=== PATIENT | male | born 1970 | race Caucasian/White ===

== ENCOUNTER 2016-11-13 15:27 | Inpatient (IN) | payer MEDICARE ==
[~2016-11-13] VITALS: Ht 182.9 cm; Wt 64.1 kg
[2016-11-13 15:28] VITALS: BP 134/80; PULSE 108; RESP 20; TEMP 98.9; O2SAT 96
[2016-11-13 16:05] VITALS: BP 132/87; PULSE 100; RESP 18; TEMP 99.3; O2SAT 95
[2016-11-13] MEDS ORDERED: BUPR150CR PO (16:31)
[2016-11-13] MEDS ORDERED: TRIL300T PO (16:31)
[2016-11-13] MEDS ORDERED: CELE20TA PO (16:31)
[2016-11-13] MEDS ORDERED: VENTAER INH (16:49)
--- NOTE | 2016-11-13 17:29 | PD ---
HPI Chief Complaint: Suicide Ideation/Attempt Time Seen by Provider: 16:55 Travel History International Travel<30 days: No Contact w/Intl Traveler<30days: No Traveled to known affect area: No History of Present Illness HPI Patient comes in for evaluation of suicidal ideations. Patient states these began yesterday. Patient states he is tired but suicide in the past partially 2 years ago by slicing open his forearm. Patient states his plan this time was possibly run in front of a garbage truck. Patient denies any medical concerns at this time. Denies any chest pain, shortness of breath, fevers, nausea, vomiting, or abdominal pain. Patient reports a history of bipolar and arthritis. PFSH Past Medical History Medical History: Denies Significant Hx Asthma: No Diabetes: No Patient Takes Glucophage: No Diminished Hearing: No Tetanus Vaccination: < 5 Years Past Surgical History Surgical History: No Previous Surgery Social History Alcohol Use: Yes (12 ppd) Tobacco Use: Yes (1-06/28 ppd) Substance Use: No (denied) Allergies-Medications (Allergen,Severity, Reaction): Coded Allergies: Librium (Verified Allergy, Unknown, 11/13/16) Reported Meds & Prescriptions Reported Meds & Active Scripts Active Reported Ventolin Hfa 18 GM Inh (Albuterol Sulfate) 90 Mcg/Act Aer 1 Puff INH Q4H PRN Wellbutrin SR 12 HR (Bupropion HCl) 150 Mg Tab 150 Mg PO Q12HR Trileptal (Oxcarbazepine) 300 Mg Tab 450 Mg PO BID Celexa (Citalopram Hydrobromide) 20 Mg Tab 20 Mg PO DAILY Review of Systems Except as stated in HPI: all other systems reviewed are Neg Physical Exam Narrative GENERAL: Well-developed, well nourished, in no acute distress, and non-ill appearing. SKIN: Focused skin assessment warm and dry. HEAD: Atraumatic. Normocephalic. EYES: Pupils equal and round. EOMI. No scleral icterus. No injection or drainage. ENT: No nasal bleeding or discharge. Mucous membranes pink and moist. NECK: Trachea midline. Supple. No nuclear rigidity. CARDIOVASCULAR: Regular rate and rhythm. No murmur appreciated. RESPIRATORY: No accessory muscle use. No respiratory distress. Clear to auscultation. Breath sounds equal bilaterally. MUSCULOSKELETAL: No obvious deformities. No clubbing. No cyanosis. No edema. Full range of motion. NEUROLOGICAL: Awake and alert. No obvious cranial nerve deficits. Motor grossly within normal limits. Normal speech. PSYCHIATRIC: Appropriate mood and affect; insight and judgment normal. Data Data Last Documented VS Vital Signs Date Time Temp Pulse Resp B/P Pulse Ox O2 Delivery O2 Flow Rate FiO2 11/13/16 17:53 86 18 126/69 Room Air 11/13/16 16:05 99.3 95 Orders Psych Screen (11/13/16 16:10) Diet Regular Basic (11/13/16 Dinner) Complete Blood Count With Diff (11/13/16 16:52) Comprehensive Metabolic Panel (11/13/16 16:52) Drug Screen, Random Urine (11/13/16 16:52) Alcohol (Ethanol) (11/13/16 16:52) Salicylates (Aspirin) (11/13/16 16:52) Tylenol (Acetaminophen) (11/13/16 16:52) Labs Laboratory Tests Test 11/13/16 11/13/16 16:59 17:15 Urine Opiates Screen NEG Urine Barbiturates Screen NEG Urine Amphetamines Screen NEG Urine Benzodiazepines Screen NEG Urine Cocaine Screen POS Urine Cannabinoids Screen NEG White Blood Count 4.0 TH/MM3 Red Blood Count 4.63 MIL/MM3 Hemoglobin 14.5 GM/DL Hematocrit 43.3 % Mean Corpuscular Volume 93.6 FL Mean Corpuscular Hemoglobin 31.2 PG Mean Corpuscular Hemoglobin 33.3 % Concent Red Cell Distribution Width 14.0 % Platelet Count 195 TH/MM3 Mean Platelet Volume 7.3 FL Neutrophils (%) (Auto) 42.9 % Lymphocytes (%) (Auto) 41.3 % Monocytes (%) (Auto) 12.9 % Eosinophils (%) (Auto) 2.4 % Basophils (%) (Auto) 0.5 % Neutrophils # (Auto) 1.7 TH/MM3 Lymphocytes # (Auto) 1.7 TH/MM3 Monocytes # (Auto) 0.5 TH/MM3 Eosinophils # (Auto) 0.1 TH/MM3 Basophils # (Auto) 0.0 TH/MM3 CBC Comment DIFF FINAL Differential Comment Sodium Level 140 MEQ/L Potassium Level 4.0 MEQ/L Chloride Level 99 MEQ/L Carbon Dioxide Level 30.1 MEQ/L Anion Gap 11 MEQ/L Blood Urea Nitrogen 13 MG/DL Creatinine 0.85 MG/DL Estimat Glomerular Filtration 97 ML/MIN Rate Random Glucose 97 MG/DL Calcium Level 8.4 MG/DL Total Bilirubin 0.2 MG/DL Aspartate Amino Transf 165 U/L (AST/SGOT) Alanine Aminotransferase 187 U/L (ALT/SGPT) Alkaline Phosphatase 79 U/L Total Protein 6.5 GM/DL Albumin 3.8 GM/DL Salicylates Level 5.7 MG/DL Acetaminophen Level LESS THAN 2.0 MCG/ML Ethyl Alcohol Level 264 MG/DL MDM Medical Decision Making Medical Screen Exam Complete: Yes Emergency Medical Condition: Yes Differential Diagnosis Homicidal, suicidal, alcohol intoxication, bipolar, substance abuse disorder, other Narrative Course Patient was seen and examined. Labs were obtained and reviewed. Patient was placed under [facility] act by Dr. Burgos. Patient medically cleared for further treatment and evaluation by psych. Final disposition per psych. Diagnosis Primary Impression: Suicidal ideation Additional Impression: Alcohol intoxication Qualified Code: F10.920 - Alcohol intoxication, uncomplicated Condition: Stable Derrick Guadalupe November 13, 2016 17:29
[2016-11-13 17:38] LABS: AUTOMATED NEUTROPHIL # 1.7 TH/MM3 (1.8-7.7); BASOPHIL % 0.5 % (0.0-2.0); EOSINOPHIL # 0.1 TH/MM3 (0-0.4); EOSINOPHIL % 2.4 % (0.0-4.0); HEMATOCRIT 43.3 % (39.0-51.0); HEMO FLAGS DIFF FINAL; LYMPH % 41.3 % (9.0-44.0); LYMPHOCYTE # 1.7 TH/MM3 (1.0-4.8); MEAN CELL VOLUME 93.6 FL (80.0-100.0); MEAN CORPUSCULAR HEMOGLOBIN 31.2 PG (27.0-34.0); MEAN CORPUSCULAR HGB CONC 33.3 % (32.0-36.0); MONO % 12.9 % (0.0-8.0); NEUT % 42.9 % (16.0-70.0); PLATELET COUNT 195 TH/MM3 (150-450); RED BLOOD COUNT 4.63 MIL/MM3 (4.50-5.90)
[2016-11-13 17:52] LABS: AMPHETAMINE, URINE NEG (NEG); BARBITURATES, URINE NEG (NEG); COCAINE, URINE POS (NEG)
[2016-11-13 17:53] VITALS: BP 126/69; PULSE 86; RESP 18
[2016-11-13 18:00] LABS: ACETAMINOPHEN LESS THAN 2.0 MCG/ML (10.0-30.0); ALKALINE PHOSPHATASE 79 U/L (45-117); TOTAL BILIRUBIN ADULT 0.2 MG/DL (0.2-1.0)
[2016-11-13 18:18] LABS: ALT (GPT) 187 U/L (12-78); ANION GAP 11 MEQ/L (5-15); AST (GOT) 165 U/L (15-37); BICARBONATE 30.1 MEQ/L (21.0-32.0); BLOOD UREA NITROGEN 13 MG/DL (7-18); CHLORIDE 99 MEQ/L (98-107); GLOMERULAR FILTRATION RATE 97 ML/MIN (>89); SODIUM (NA) 140 MEQ/L (136-145)
[2016-11-13 22:11] VITALS: BP 127/79; PULSE 86; RESP 18; O2SAT 97
[2016-11-14 02:31] VITALS: BP 136/82; PULSE 84; RESP 18
[2016-11-14] MEDS ORDERED: DIAZEPAM 10 MG TAB PO ONE ×2 (03:00→09:00)
[2016-11-14 06:05] VITALS: BP 112/72; PULSE 63; RESP 18; O2SAT 97
[2016-11-14 08:30] VITALS: BP 137/73; PULSE 116; RESP 18; TEMP 99.6; O2SAT 97
[2016-11-14 10:00] VITALS: BP 114/72; PULSE 77; RESP 18; TEMP 99.8; O2SAT 95
[2016-11-14 14:10] VITALS: BP 133/78; PULSE 77; RESP 18; TEMP 99.6; O2SAT 95
[2016-11-14] MEDS ORDERED: ALUMINUM/MAGNESIUM/SIMETH 30 ML CUP PO PRN (16:30)
[2016-11-14] MEDS ORDERED: MAGNESIUM HYDROXIDE SUSP 30 ML CUP PO PRN (16:30)
[2016-11-14] MEDS ORDERED: LORazepam 0.5 MG TAB PO PRN (16:30)
[2016-11-14] MEDS ORDERED: LORazepam 2 MG/ML VIAL IM PRN ×2 (16:30)
[2016-11-14] MEDS ORDERED: LORazepam 1 MG TAB PO PRN (16:30)
[2016-11-14] MEDS ORDERED: LORazepam 2 MG/ML VIAL IV PUSH PRN ×4 (16:45)
[2016-11-14] MEDS ORDERED: FLUMAZENIL 0.5 MG/5 ML VIAL IV PUSH PRN (16:45)
[2016-11-14] MEDS ORDERED: HALOPERIDOL LACTATE 5 MG/ML AMP IM PRN (16:45)
[2016-11-14 17:29] VITALS: BP 107/81; PULSE 98; RESP 18; TEMP 98.6; O2SAT 98
[2016-11-14] MEDS: LORazepam 1 MG TAB PO PRN (20:42)
[2016-11-14] MEDS: REMOVE OLD NICODERM (NICOTINE) PATCH T-DERMAL SCH (20:58)
[2016-11-15 06:11] VITALS: BP 123/74; PULSE 80; RESP 18; TEMP 98.1; O2SAT 95
[2016-11-15] MEDS: LORazepam 2 MG TAB PO PRN ×2 (09:17→17:42)
[2016-11-15] MEDS: ACETAMINOPHEN 325 MG TAB PO PRN ×2 (09:18→14:24)
[2016-11-15] MEDS: NICOTINE 21 MG/24 HR PATCH T-DERMAL SCH (09:19)
[2016-11-15] MEDS: LORazepam 1 MG TAB PO PRN (12:53)
--- NOTE | 2016-11-15 18:02 | HHI.HP ---
Provisional Diagnosis Admission Date November 14, 2016 at 16:20 Chauncey I. 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 Express and informed consent means consent voluntarily given in writing, by a competent person, after sufficient explanation and disclosure of the subject matter involved to enable the person to make a knowing and willful decision without any element of force, fraud, deceit, duress, or other form of constraint or coercion. This person is 18 years of age or older, is not now known to be incompetent to consent to treatment with a guardian advocate, and does not have a health care surrogate or proxy currently making medical treatment decisions. I have found this person to be one of the following: [xx] Competent to provide express and informed consent, as defined above, for voluntary admission to this facility and is competent to provide express and informed consent for treatment. He/she has the consistent capacity to make well reasoned, willful, and knowing decisions concerning his or her medical or mental health treatment. The person fully and consistently understands the purpose of the admission for examination/placement and is fully capable of personally exercising all rights assured [place] Incompetent to provide express and informed consent to voluntary admission, and this is incompetent to provide express and informed consent to treatment. The person must be transferred to involuntary status and a petition for a guardian advocate filed with the Circuit Court. [] Refusing to provide express and informed consent to voluntary admission but is competent to provide express and informed consent for treatment. The person must be discharged or transferred to involuntary status. Form shall be completed within 24 hours of a person's arrival at the receiving facility and filed in the clinical record of each person: 1. Admitted on a voluntary basis 2. Permitted to provide express and informed consent to his/her own treatment 3. Allowed to transfer from involuntary to voluntary status 4. Prior to permitting a person to consent to his or her own treatment after having been previously found incompetent to consent to treatment. History of Present Illness Capacity: Has Capacity HPI Patient is a 46-year-old white male [place]. Acknowledge alcoholic drinks daily drinks in the morning drinks by himself acknowledges multiple detoxes in the past and other legal issues related to alcohol including some incarcerations. He minimizes his cocaine use. He also states a history mental health issues reels of various psychiatric medications has taken the past but has not taken them now because of funding issues. He states has been off his medication his Concerta increased suicidal thoughts. With vague plans on uncertain type. He is vague about past psychiatric hospitalizations out of state. Is also somewhat reluctant to talk about other past legal history. He denies any significant physical or sexual abuse in the past. In any event at the present time patient has been placed on the ciwa protocol due to his alcohol level and history. I do question the motivation for statements about suicidality. We did discuss possibility of finding placement for him at a situation such as [facility] his attitude change into one of denial of and need for that and irritability appearing suggested that. He stated that appear okay if he lived in a tent in the [facility]. This leads me to believe that may be some of the motivations for his suicidal statements and mental health history. For now though will continue with ciwa will refrain from any other psychotropics at this time no other benzodiazepines or opiates Review of Systems Constitutional: DENIES: Diaphoretic episodes, Fatigue, Fever, Weight gain, Weight loss, Chills, Dizziness, Change in appetite, Night Sweats Endocrine: DENIES: Heat/cold intolerance, Polydipsia, Polyuria, Polyphagia Eyes: DENIES: Blurred vision, Diplopia, Eye inflammation, Eye pain, Vision loss , Photosensitivity, Double Vision Ears, nose, mouth, throat: DENIES: Tinnitus, Hearing loss, Vertigo, Nasal discharge, Oral lesions, Throat pain, Hoarseness, Ear Pain, Running Nose, Epistaxis, Sinus Pain, Toothache, Odynophagia Respiratory: DENIES: Apneas, Cough, Snoring, Wheezing, Hemoptysis, Sputum production, Shortness of breath Cardiovascular: DENIES: Chest pain, Palpitations, Syncope, Dyspnea on Exertion , PND, Lower Extremity Edema, Orthopnea, Claudication Gastrointestinal: DENIES: Abdominal pain, Black stools, Bloody stools, Constipation, Diarrhea, Nausea, Vomiting, Difficulty Swallowing, Anorexia Genitourinary: DENIES: Sexual dysfunction, Urinary frequency, Urinary incontinence, Urgency, Hematuria, Dysuria, Nocturia, Penile Discharge, Testicular Pain, Testicular Swelling Musculoskeletal: DENIES: Joint pain, Muscle aches, Stiffness, Joint Swelling, Back pain, Neck pain Integumentary: DENIES: Abnormal pigmentation, Nail changes, Pruritus, Rash Hematologic/lymphatic: DENIES: Bruising, Lymphadenopathy Immunologic/allergic: DENIES: Eczema, Urticaria Neurologic: DENIES: Abnormal gait, Headache, Localized weakness, Paresthesias, Seizures, Speech Problems, Tremor, Poor Balance Psychiatric: COMPLAINS OF: Depression (claiming depression), Suicidal Ideation (claiming suicidality) Past Psych History Psychological trauma history Patient vague and noncommittal Violence risk - others (6 mos) Denies Violence risk - self (6 mos) States suicidal ideation Substance Abuse History Drugs/Alcohol past 12 months Active alcoholic cocaine Past Family Social History Coded Allergies: Librium (Verified Allergy, Unknown, 11/13/16) Past Medical History Nonspecific Reported Medications Albuterol 18 GM Inh (Ventolin Hfa 18 GM Inh)90 Mcg/Act Aer1 Puff INH Q4H PRN ( SHORTNESS OF BREATH) #1 INHALER Ref 0 11/13/16 Bupropion HCl ER 12 HR (Wellbutrin SR 12 HR)150 Mg [id number] Mg PO Q12HR Ref 0 11/13/16 Oxcarbazepine (Trileptal)300 Mg [id number] Mg PO BID #60 TAB Ref 0 11/13/16 Citalopram (Celexa)20 Mg Tab20 Mg PO DAILY #30 TAB Ref 0 11/13/16 Current Medications Medications (Trade) Dose Ordered Sig/Nuria Route Start Time Stop Time Status Last Admin (Ativan) 1 mg Q6H PRN PO 11/14/16 16:30 (Ativan Inj) 1 mg Q6H PRN IM 11/14/16 16:30 (Tylenol) 650 mg Q4H PRN PO 11/14/16 16:30 11/15/16 14:24 (Milk Of Magnesia Liq) 30 ml DAILY PRN PO 11/14/16 16:30 (Mag-Al Plus Susp Liq) 30 ml Q6H PRN PO 11/14/16 16:30 11/15/16 12:54 (Habitrol 21 Mg Patch.24 Hr) 1 patch DAILY T-DERMAL 11/14/16 16:30 Miscellaneous Information 1 HS T-DERMAL 11/14/16 21:00 (Romazicon Inj) 0.2 mg Q1M PRN IV PUSH 11/14/16 16:45 (Ativan) 1 mg Q4H PRN PO 11/14/16 16:45 11/15/16 12:53 (Ativan Inj) 1 mg Q4H PRN IV PUSH 11/14/16 16:45 (Ativan) 2 mg Q2H PRN PO 11/14/16 16:45 11/15/16 17:42 (Ativan Inj) 2 mg Q2H PRN IV PUSH 11/14/16 16:45 (Ativan Inj) 2 mg Q1H PRN IV PUSH 11/14/16 16:45 (Ativan Inj) 2 mg Q15M PRN IV PUSH 11/14/16 16:45 (Haldol Inj) 2 mg Q15M PRN IM 11/14/16 16:45 Family History Patient vague about any past mental health issues and family Social History Patient homeless Patient's Strengths (min. 2) Patient verbal labile axis health care Physical Exam Patient seen screened cleared in ED. At this time patient no acute distress no respiratory distress. Neck is supple pulse is regular confirm. Abdomen soft patient was all 4 extremities without difficulty Vital Signs Vital Signs Date Time Temp Pulse Resp B/P Pulse Ox O2 Delivery O2 Flow Rate FiO2 11/15/16 06:11 98.1 80 18 123/74 95 11/14/16 14:10 Room Air Mental Status Examination Alert oriented thin slender white male fairly long hair but [place]. Having is somewhat guarded intimidating entitled attitude Appearance Somewhat disheveled Speech: Unremarkable Orientation: x3 Memory: Unremarkable Thought Process: Logical Thought Content: Unremarkable Language Fair Fund of Knowledge Fair Hallucination Type: None (denies) Attention and Concentration: Other (there) Suicidal Ideation: Yes (patient making suicidal ideation) Previous Suicide Attempts: No Homicidal Ideation: No Previous Homicide Attempts: No Insight: Poor Judgment: Poor Affect: Other (good range and intensity) Mood: Euthymic (to mildly dysphoric and entitled) Motor Activity: Normal gait Assessment & Plan Problem List: (1) Adjustment disorder with mixed disturbance of emotions and conduct ICD Code: F43.25 (2) Alcohol intoxication ICD Code: F10.929 (3) Cocaine abuse ICD Code: F14.10 Assessment & Plan Estimated LOS 3-4: days this time patient meets criteria for involuntary assessment and continued care. Will continue monthly ciwa protocol. Will refrain from psychotropics at this time and further observe him I feel that may be a modicum of manipulation or perhaps malingering Discharge Planning To be determined Request HC Surrog/Guard Advoc?: No Problem Qualifiers (1) Alcohol intoxication: Qualified Code: F10.920 - Alcohol intoxication, uncomplicated Randall Wyman MD November 15, 2016 18:02
[2016-11-15 19:07] VITALS: BP 97/72; PULSE 103; RESP 18; TEMP 98.3; O2SAT 97
[2016-11-15] MEDS: REMOVE OLD NICODERM (NICOTINE) PATCH T-DERMAL SCH (20:17)
[2016-11-16 05:18] VITALS: BP 126/58; PULSE 97; RESP 18; TEMP 98.1; O2SAT 94
[2016-11-16] MEDS: NICOTINE 21 MG/24 HR PATCH T-DERMAL SCH (09:00)
--- NOTE | 2016-11-16 09:28 | HHI.DS ---
Psychiatry Discharge Summary Inpatient Psychiatric care?: Yes Advance Directive: No Reason Not Provided: DOES NOT HAVE Mental Health AdvanceDirective: No Health Care Proxy: No Admission Admission Date November 14, 2016 at 16:20 Admission Diagnosis: (1) Adjustment disorder with mixed disturbance of emotions and conduct ICD Code: F43.25 (2) Alcohol intoxication ICD Code: F10.929 (3) Cocaine abuse ICD Code: F14.10 Brief History Patient is a 46-year-old white male [place] homeless. Acknowledge alcoholic drinks daily drinks in the morning drinks by himself acknowledges multiple detoxes in the past and other legal issues related to alcohol including some incarcerations. He minimizes his cocaine use. He also states a history mental health issues reels of various psychiatric medications has taken the past but has not taken them now because of funding issues. He states has been off his medication his Concerta increased suicidal thoughts. With vague plans on uncertain type. He is vague about past psychiatric hospitalizations out of state. Is also somewhat reluctant to talk about other past legal history. He denies any significant physical or sexual abuse in the past. In any event at the present time patient has been placed on the ciwa protocol due to his alcohol level and history. I do question the motivation for statements about suicidality. We did discuss possibility of finding placement for him at a situation such as [facility] his attitude change into one of denial of and need for that and irritability appearing suggested that. He stated that appear okay if he lived in a tent in the [facility]. This leads me to believe that may be some of the motivations for his suicidal statements and mental health history. For now though will continue with ciwa will refrain from any other psychotropics at this time no other benzodiazepines or opiates Tobacco Use In Past 30 Days: 5 or More Cigarettes/Day Alcohol Use: 4 or More Times Per Week Hospital Course Patient did well in the milieu. Showed no 7 signs of withdrawal. State in comfortably to the milieu. Patient also showed no signs of mood swings manic episodes or significant depression. He denied voices or visions basically denies suicidality homicidality though that wasn't degree of manipulation with them making vague suicidal statements. I question the may have been some seeking of a place to stay related to this behavior. Trina patient seen today with counselor Demetrius, patient denies suicidality homicidality voices or visions is aware of his need gain control of his addictions which would help also getting control his mental health issues. I feel patient reached maximum benefit of this hospitalization. Patient be discharged today with referral to the homeless coalition, referrals to the various sober living resources in the community. The been no Rx by me. Patient states he has Eraxis from his claimed prior psychiatric hospitalizations in [place]. He may fill those as he desires. Will also refer him through [facility] act for medication management, and also for voluntary outpatient substance abuse assessment. Will also refer him to AA/NA. We'll also give him a few bus passes to help with transportation Results Blood Pressure 126 / 58 Vital Signs Date Time Temp Pulse Resp B/P Pulse Ox O2 Delivery O2 Flow Rate FiO2 11/16/16 05:18 98.1 97 18 126/58 94 11/14/16 14:10 Room Air Laboratory Tests Test 11/13/16 11/13/16 16:59 17:15 Urine Cocaine Screen POS (NEG) Monocytes (%) (Auto) 12.9 % (0.0-8.0) Neutrophils # (Auto) 1.7 TH/MM3 (1.8-7.7) Calcium Level 8.4 MG/DL (8.5-10.1) Aspartate Amino Transf 165 U/L (15-37) (AST/SGOT) Alanine Aminotransferase 187 U/L (12-78) (ALT/SGPT) Acetaminophen Level LESS THAN 2.0 MCG/ML (10.0-30.0) Ethyl Alcohol Level 264 MG/DL (0-5) Summary of Procedures None done Imaging None done Pending results at discharge: No Medications # of Antipsychotic meds at D/C: 0 Approp Antipsych med options 1 - Minimum of three failed multiple trials of monotherapy. 2 - Documented plan to taper to monotherapy due to previous use of multiple meds OR cross-taper in progress at D/C. 3 - Documentation of augmentation of Clozapine. 4 - Justification other than those listed in allowable values 1-3, document here : Discharge Discharge Date: November 16, 2016 Discharge Diagnosis: (1) Cocaine abuse Diagnosis: Secondary ICD Code: F14.10 (2) Adjustment disorder with mixed disturbance of emotions and conduct Diagnosis: Principal ICD Code: F43.25 (3) Alcohol intoxication Diagnosis: Secondary ICD Code: F10.929 Mental Status Exam at Disch Alert oriented thin slender somewhat disheveled white male. He is normal active. Patients mood is euthymic with slight decreased range intensity was affect, speech rate and rhythm are within normal limits though no formal thought disorders. No auditory or visual hallucinations no delusions. Insight and judgment poor to fair cognition grossly intact Pt Condition on Discharge: Stable Discharge Disposition: Discharge Home Discharge Instructions Diet Instructions: As Tolerated, No Restrictions Activities you can perform: Regular-No Restrictions Scheduled Appointment: Rick Arreaga Discharge Time > 30 minutes Discharge/Advance Care Plan Health Problems: (1) Adjustment disorder with mixed disturbance of emotions and conduct (2) Alcohol intoxication (3) Cocaine abuse Goals to promote your health * To prevent worsening of your condition and complications * To maintain your health at the optimal level Directions to meet your goals Take your medications as prescribed Follow your dietary instruction Follow activity as directed Keep your appointments as scheduled Take your immunizations and boosters as scheduled If your symptoms worsen call your PCP, if no PCP go to Urgent Care Center or Emergency Room For 17/01 questions related to your inpatient stay or results of tests pending at discharge, please contact Dr. Randall Wyman at Smoking is Dangerous to Your Health. Avoid second hand smoking Problem Qualifiers (1) Alcohol intoxication: Qualified Code: F10.920 - Alcohol intoxication, uncomplicated Randall Wyman MD November 16, 2016 09:28
== END 2016-11-16 12:15 | disposition home or self-care (01) | DRG 882 ==
LOC: NEPJ 15:27 → NEDA 11-14 16:20 → H270 11-14 17:05
PROVIDERS: ADMIT Psychiatry & Neurology Psychiatry; ATTEND Psychiatry & Neurology Psychiatry
DX: F43.25 Adjustment disorder with mixed disturbance of emotions and conduct (principal); R45.851 Suicidal ideations; Z91.14 Patient's other noncompliance with medication regimen; F10.229 Alcohol dependence with intoxication, unspecified; F14.10 Cocaine abuse, uncomplicated; Z91.5 Personal history of self-harm; F17.210 Nicotine dependence, cigarettes, uncomplicated; Z59.0 Homelessness; Y90.8 Blood alcohol level of 240 mg/100 ml or more
CPT/HCPCS: 80053; 80307; 85025; 99284

== ENCOUNTER 2016-12-01 11:20 | Emergency (ER) | payer MEDICARE ==
[~2016-12-01] VITALS: Ht 182.9 cm; Wt 63.5 kg
[~2016-12-01 11:20] MED LIST: BUPR150CR PO; CELE20TA PO; TRIL300T PO; VENTAER INH
[2016-12-01 11:21] VITALS: BP 133/79; PULSE 123; RESP 20; TEMP 98.5; O2SAT 97
--- NOTE | 2016-12-01 11:36 | PD ---
Physical Exam Time Seen by Provider: 11:33 Narrative 46yo M c/o sadness, depression, and SI. Plan to cut wrists. Hx of cutting wrists in the past w/ suicide intent. Reports smoking crack a few days ago and drinking beer last night. Patient seen in triage. VS reviewed. Awaiting bed placement. Data Data Last Documented VS Vital Signs Date Time Temp Pulse Resp B/P Pulse Ox O2 Delivery O2 Flow Rate FiO2 12/01/16 11:21 98.5 123 20 133/79 97 Room Air [facility] Supervised Visit with DEANNE: Chata Diaz Dec 01, 2016 11:35
--- NOTE | 2016-12-01 11:39 | PD ---
HPI . Suicidal ideation Chief Complaint: Suicide Ideation/Attempt Time Seen by Provider: 11:38 Travel History International Travel<30 days: No Contact w/Intl Traveler<30days: No Traveled to known affect area: No History of Present Illness HPI 46-year-old male with history of chronic back pain, BPH, neuropathy, depression , bipolar disorder, alcoholism and polysubstance abuse here with complaints of suicidal ideation. Patient tells me that he suffered a recent breakup, he has been homeless for several months, his friends have turned on him, and he has spent all of his paycheck on drugs and alcohol within the past week and now considering suicide plans. He tells me he has thought about cutting his wrists with a steel box toe inserter. He decided to check into the emergency department for help as he does not want to harm himself. PFSH Past Medical History Arthritis: Yes Asthma: No Anxiety: Yes Depression: Yes Diabetes: No Diminished Hearing: No Musculoskeletal: Yes Psychiatric: Yes (Manic Depression) Social History Alcohol Use: Yes (12 ppd) Tobacco Use: Yes (1-06/28 ppd) Substance Use: Yes (COCAINE RECENTLY) Allergies-Medications (Allergen,Severity, Reaction): Coded Allergies: Librium (Verified Allergy, Unknown, 11/13/16) Reported Meds & Prescriptions Reported Meds & Active Scripts Active Reported Ventolin Hfa 18 GM Inh (Albuterol Sulfate) 90 Mcg/Act Aer 1 Puff INH Q4H PRN Wellbutrin SR 12 HR (Bupropion HCl) 150 Mg Tab 150 Mg PO Q12HR Trileptal (Oxcarbazepine) 300 Mg Tab 450 Mg PO BID Celexa (Citalopram Hydrobromide) 20 Mg Tab 20 Mg PO DAILY Review of Systems General / Constitutional: No: Fever Eyes: No: Visual changes HENT: No: Headaches Cardiovascular: No: Chest Pain or Discomfort Respiratory: No: Shortness of Breath Gastrointestinal: No: Abdominal Pain Genitourinary: No: Dysuria Musculoskeletal: No: Pain Skin: No Rash Neurologic: No: Weakness Psychiatric: Positive: Depression, Suicidal Ideations Endocrine: No: Polydipsia Hematologic/Lymphatic: No: Easy Bruising Physical Exam Narrative GENERAL: AAO x 3, no acute distress, Well-nourished, well-developed patient. SKIN: Warm and dry. No visible rashes or bruising. HEAD: Normocephalic and atraumatic. EYES: No scleral icterus. No injection or drainage. EOM intact, PERRLA ENT: No nasal drainage noted. Mucous membranes pink. Airway patent. NECK: Supple, trachea midline. No JVD. CARDIOVASCULAR: Regular rate and rhythm without murmurs, gallops, or rubs. RESPIRATORY: Breath sounds equal bilaterally. No accessory muscle use. No rhonchi or rales. GASTROINTESTINAL: Abdomen soft, non-tender, nondistended. EXTREMITIES: No cyanosis or edema. NEURO: CN II through XII intact, loans consultant strength normal bilaterally, upper and lower extremities strength 5 over 5, BACK: Nontender without obvious deformity. No CVA tenderness. PSYCH: AAO x 3, normal affect. Data Data Last Documented VS Vital Signs Date Time Temp Pulse Resp B/P Pulse Ox O2 Delivery O2 Flow Rate FiO2 12/01/16 12:00 100 Room Air 12/01/16 11:21 98.5 123 20 133/79 Orders Complete Blood Count With Diff (12/01/16 11:44) Comprehensive Metabolic Panel (12/01/16 11:44) Psych Screen (12/01/16 11:44) Drug Screen, Random Urine (12/01/16 11:44) Alcohol (Ethanol) (12/01/16 11:44) Diet Regular Basic (12/01/16 Lunch) Labs Laboratory Tests Test 12/01/16 12/01/16 12:35 12:45 White Blood Count 4.9 TH/MM3 Red Blood Count 4.88 MIL/MM3 Hemoglobin 15.6 GM/DL Hematocrit 45.4 % Mean Corpuscular Volume 93.2 FL Mean Corpuscular Hemoglobin 31.9 PG Mean Corpuscular Hemoglobin 34.2 % Concent Red Cell Distribution Width 13.8 % Platelet Count 166 TH/MM3 Mean Platelet Volume 7.6 FL Neutrophils (%) (Auto) 66.9 % Lymphocytes (%) (Auto) 20.5 % Monocytes (%) (Auto) 10.1 % Eosinophils (%) (Auto) 1.9 % Basophils (%) (Auto) 0.6 % Neutrophils # (Auto) 3.3 TH/MM3 Lymphocytes # (Auto) 1.0 TH/MM3 Monocytes # (Auto) 0.5 TH/MM3 Eosinophils # (Auto) 0.1 TH/MM3 Basophils # (Auto) 0.0 TH/MM3 CBC Comment DIFF FINAL Differential Comment Sodium Level 138 MEQ/L Potassium Level 4.9 MEQ/L Chloride Level 102 MEQ/L Carbon Dioxide Level 27.1 MEQ/L Anion Gap 9 MEQ/L Blood Urea Nitrogen 13 MG/DL Creatinine 0.90 MG/DL Estimat Glomerular Filtration 91 ML/MIN Rate Random Glucose 80 MG/DL Calcium Level 9.2 MG/DL Total Bilirubin 0.8 MG/DL Aspartate Amino Transf 84 U/L (AST/SGOT) Alanine Aminotransferase 114 U/L (ALT/SGPT) Alkaline Phosphatase 65 U/L Total Protein 6.7 GM/DL Albumin 3.9 GM/DL Ethyl Alcohol Level LESS THAN 3 MG/DL Urine Opiates Screen NEG Urine Barbiturates Screen NEG Urine Amphetamines Screen NEG Urine Benzodiazepines Screen POS Urine Cocaine Screen POS Urine Cannabinoids Screen NEG MDM Medical Decision Making Medical Screen Exam Complete: Yes Emergency Medical Condition: Yes Medical Record Reviewed: Yes Differential Diagnosis Suicidal ideation, depression, bipolar disorder, polysubstance abuse Narrative Course This is a 46-year-old male here with suicidal ideation. He has no medical complaints, therefore labs will be ordered and if they are within normal limits he will be medically cleared for psych screen. Laboratory Tests Test 12/01/16 12/01/16 12:35 12:45 White Blood Count 4.9 TH/MM3 Red Blood Count 4.88 MIL/MM3 Hemoglobin 15.6 GM/DL Hematocrit 45.4 % Mean Corpuscular Volume 93.2 FL Mean Corpuscular Hemoglobin 31.9 PG Mean Corpuscular Hemoglobin 34.2 % Concent Red Cell Distribution Width 13.8 % Platelet Count 166 TH/MM3 Mean Platelet Volume 7.6 FL Neutrophils (%) (Auto) 66.9 % Lymphocytes (%) (Auto) 20.5 % Monocytes (%) (Auto) 10.1 % Eosinophils (%) (Auto) 1.9 % Basophils (%) (Auto) 0.6 % Neutrophils # (Auto) 3.3 TH/MM3 Lymphocytes # (Auto) 1.0 TH/MM3 Monocytes # (Auto) 0.5 TH/MM3 Eosinophils # (Auto) 0.1 TH/MM3 Basophils # (Auto) 0.0 TH/MM3 CBC Comment DIFF FINAL Differential Comment Sodium Level 138 MEQ/L Potassium Level 4.9 MEQ/L Chloride Level 102 MEQ/L Carbon Dioxide Level 27.1 MEQ/L Anion Gap 9 MEQ/L Blood Urea Nitrogen 13 MG/DL Creatinine 0.90 MG/DL Estimat Glomerular Filtration 91 ML/MIN Rate Random Glucose 80 MG/DL Calcium Level 9.2 MG/DL Total Bilirubin 0.8 MG/DL Aspartate Amino Transf 84 U/L (AST/SGOT) Alanine Aminotransferase 114 U/L (ALT/SGPT) Alkaline Phosphatase 65 U/L Total Protein 6.7 GM/DL Albumin 3.9 GM/DL Ethyl Alcohol Level LESS THAN 3 MG/DL Urine Opiates Screen NEG Urine Barbiturates Screen NEG Urine Amphetamines Screen NEG Urine Benzodiazepines Screen POS Urine Cocaine Screen POS Urine Cannabinoids Screen NEG Patient's LFTs are elevated, which I expect in someone with long-standing alcoholism. I've medically clear him for psych screen. Diagnosis Primary Impression: Depression Qualified Code: F32.9 - Depression, unspecified depression type Condition: Stable Any Barbour Dec 01, 2016 11:39 Any Barbour Dec 01, 2016 11:39
[2016-12-01 12:46] LABS: AUTOMATED NEUTROPHIL # 3.3 TH/MM3 (1.8-7.7); BASOPHIL % 0.6 % (0.0-2.0); EOSINOPHIL # 0.1 TH/MM3 (0-0.4); EOSINOPHIL % 1.9 % (0.0-4.0); HEMATOCRIT 45.4 % (39.0-51.0); HEMO FLAGS DIFF FINAL; LYMPH % 20.5 % (9.0-44.0); MEAN CELL VOLUME 93.2 FL (80.0-100.0); MEAN CORPUSCULAR HEMOGLOBIN 31.9 PG (27.0-34.0); MEAN CORPUSCULAR HGB CONC 34.2 % (32.0-36.0); MONO % 10.1 % (0.0-8.0); NEUT % 66.9 % (16.0-70.0); PLATELET COUNT 166 TH/MM3 (150-450); RED BLOOD COUNT 4.88 MIL/MM3 (4.50-5.90); RED CELL DISTRIBUTION WIDTH 13.8 % (11.6-17.2); WHITE BLOOD COUNT 4.9 TH/MM3 (4.0-11.0)
[2016-12-01 13:01] LABS: ALT (GPT) 114 U/L (12-78); ANION GAP 9 MEQ/L (5-15); AST (GOT) 84 U/L (15-37); BICARBONATE 27.1 MEQ/L (21.0-32.0); BLOOD UREA NITROGEN 13 MG/DL (7-18); CHLORIDE 102 MEQ/L (98-107); GLOMERULAR FILTRATION RATE 91 ML/MIN (>89); POTASSIUM 4.9 MEQ/L (3.5-5.1); SODIUM (NA) 138 MEQ/L (136-145)
[2016-12-01 13:03] LABS: ALKALINE PHOSPHATASE 65 U/L (45-117); TOTAL BILIRUBIN ADULT 0.8 MG/DL (0.2-1.0)
[2016-12-01 13:23] LABS: AMPHETAMINE, URINE NEG (NEG); BARBITURATES, URINE NEG (NEG); COCAINE, URINE POS (NEG)
[2016-12-01 14:55] VITALS: BP 129/78; PULSE 91; RESP 18; TEMP 98.2; O2SAT 99
[2016-12-01 17:05] VITALS: BP 110/63; PULSE 67; RESP 18; O2SAT 97
[2016-12-01 19:41] VITALS: BP 106/66; PULSE 96; RESP 18; O2SAT 98
[2016-12-01 22:00] VITALS: BP 113/60; PULSE 82; RESP 18; O2SAT 98
[2016-12-02 02:38] VITALS: BP 117/72; PULSE 65; RESP 16; O2SAT 99
[2016-12-02 05:44] VITALS: BP 118/68; PULSE 81; RESP 18; O2SAT 98
[2016-12-02 09:34] VITALS: BP 118/68; PULSE 81; RESP 18; O2SAT 98
--- NOTE | 2016-12-02 09:38 | PD ---
History of Present Illness Chief Complaint: Suicide Ideation/Attempt Time Seen by Provider: 09:35 Travel History International Travel<30 Days: No Contact w/Intl Traveler<30days: No Known affected area: No Legal Status Legal Status: Voluntary History of Present Illness: History of Present Illness 46-year-old male with history of adjustment disorder, cocaine abuse , alcohol abuse who presents under a voluntary status with complaints of suicidal ideation. He reported to ED provider that he felt suicidal and so he decided to check into the emergency dept. The patient did not make any attempts at harming himself. Patient reports several stressors including a recent breakup , he has been homeless for several months, his friends have turned on him, and he has spent all of his paycheck on drugs and alcohol within the past week . Patient was monitored in [facility] and he presented no behavioral concerns and no suicidality. Patient verbalized desire to be transferred to another facility for treatment. " I want to go to the [facility]. I heard some good things about them. ". Patient is seen in [facility]. Awake, alert and oriented. Calm and engaging. Speech is clear, logical and goal directed. There is no psychosis and no letha. No significant depressive or anxious symptoms. He minimizes his continued use of substances including cocaine. [facility] Past Medical History Arthritis: Yes Asthma: No Anxiety: Yes Depression: Yes Diabetes: No Diminished Hearing: No Musculoskeletal: Yes Psychiatric: Yes (Manic Depression) Tetanus Vaccination: < 5 Years ?: Not Past Surgical History Surgical History: No Previous Surgery Other Surgery: Yes (rhinoplasty) Psychiatric History Psychiatric History Hx Psychiatric Treatment: He reports that he first received services in 1997 when he attended AA meetings. In 2001 he went to his first substance abuse inpatient facility for 21 days. He reports previously being in an inpatient treatment facility in [place] in August of this year for about a month. He stated that he was at [facility] for 3 months (intensive outpatient). He states that he received previous mental health treatment in 2010 through [facility] until about 2015. History of Inpatient Treatment: Yes Guns or firearms in home: No Social History Single male. Homeless. Hx Alcohol Use: Yes Hx Tobacco Use: Yes Hx Substance Use: Yes Substance Use Type: Alcohol, Nicotine/Cigarettes, Benzos (Valium,Xanax), Cocaine Other Substances Used: 1-1/2 ppd 12 ppd Hx of Substance Use Treatment: Yes Family Psychiatric History Negative Allergies-Medications (Allergen,Severity, Reaction): Coded Allergies: Librium (Verified Allergy, Unknown, 11/13/16) Reported Meds & Prescriptions Reported Meds & Active Scripts Active Reported Ventolin Hfa 18 GM Inh (Albuterol Sulfate) 90 Mcg/Act Aer 1 Puff INH Q4H PRN Wellbutrin SR 12 HR (Bupropion HCl) 150 Mg Tab 150 Mg PO Q12HR Trileptal (Oxcarbazepine) 300 Mg Tab 450 Mg PO BID Celexa (Citalopram Hydrobromide) 20 Mg Tab 20 Mg PO DAILY Review of Systems Except as stated in HPI: all other systems reviewed are Neg Exam Alert: Yes [place]: Person (ox4) Mood: Calm Affect: Appropriate Speech: Clear, Logical Eye Contact: Normal Memory Intact: Comment (no impairmetn) Hallucinations: Other (neagtive) Delusions: No Suicidal: Ideation (negative) Homicidal: Ideation (neagtive) Insight/Judgement poor Not impaired MDM Medical Decision Making Medical Record Reviewed: Yes Assessment/Plan Patient at this time is future oriented. Jenn shin is intent on going to the [facility] or any other facility where he can receive substance abuse treatment. My suspicion is that he is seeking half-way at this time. . he will be provided with local resources including sober living houses. Does not meet criteria at this time. . Orders Complete Blood Count With Diff (12/01/16 11:44) Comprehensive Metabolic Panel (12/01/16 11:44) Psych Screen (12/01/16 11:44) Drug Screen, Random Urine (12/01/16 11:44) Alcohol (Ethanol) (12/01/16 11:44) Diet Regular Basic (12/01/16 Lunch) Diet Regular Basic (12/02/16 Breakfast) Diet Regular Basic (12/02/16 Lunch) Results Vital Signs Date Time Temp Pulse Resp B/P Pulse Ox O2 Delivery O2 Flow Rate FiO2 12/02/16 09:34 81 18 118/68 98 Room Air 12/02/16 05:44 81 18 118/68 98 Room Air 12/02/16 02:38 65 16 117/72 99 Room Air 12/01/16 22:00 82 18 113/60 98 Room Air 12/01/16 19:41 96 18 106/66 98 Room Air 12/01/16 17:05 67 18 110/63 97 Room Air 12/01/16 14:55 98.2 91 18 129/78 99 Room Air 12/01/16 12:00 100 Room Air 12/01/16 11:21 98.5 123 20 133/79 97 Room Air Laboratory Tests Test 12/01/16 12/01/16 12:35 12:45 White Blood Count 4.9 Red Blood Count 4.88 Hemoglobin 15.6 Hematocrit 45.4 Mean Corpuscular Volume 93.2 Mean Corpuscular Hemoglobin 31.9 Mean Corpuscular Hemoglobin 34.2 Concent Red Cell Distribution Width 13.8 Platelet Count 166 Mean Platelet Volume 7.6 Neutrophils (%) (Auto) 66.9 Lymphocytes (%) (Auto) 20.5 Monocytes (%) (Auto) 10.1 Eosinophils (%) (Auto) 1.9 Basophils (%) (Auto) 0.6 Neutrophils # (Auto) 3.3 Lymphocytes # (Auto) 1.0 Monocytes # (Auto) 0.5 Eosinophils # (Auto) 0.1 Basophils # (Auto) 0.0 CBC Comment DIFF FINAL Differential Comment Sodium Level 138 Potassium Level 4.9 Chloride Level 102 Carbon Dioxide Level 27.1 Anion Gap 9 Blood Urea Nitrogen 13 Creatinine 0.90 Estimat Glomerular Filtration 91 Rate Random Glucose 80 Calcium Level 9.2 Total Bilirubin 0.8 Aspartate Amino Transf 84 (AST/SGOT) Alanine Aminotransferase 114 (ALT/SGPT) Alkaline Phosphatase 65 Total Protein 6.7 Albumin 3.9 Ethyl Alcohol Level LESS THAN 3 Urine Opiates Screen NEG Urine Barbiturates Screen NEG Urine Amphetamines Screen NEG Urine Benzodiazepines Screen POS Urine Cocaine Screen POS Urine Cannabinoids Screen NEG Diagnosis Primary Impression: Cocaine abuse Additional Impressions: Depression Substance induced mood disorder Condition: Stable Problem Qualifiers Additional Impressions: Depression Qualified Code: F32.9 - Depression, unspecified depression type Janis Little Dec 02, 2016 09:38
[2016-12-02 10:07] VITALS: BP 106/65; PULSE 90; RESP 18; O2SAT 90
== END 2016-12-02 10:10 | disposition home or self-care (01) ==
LOC: NEPD 11:20 → NEPJ 12-02 10:10
DX: F14.10 Cocaine abuse, uncomplicated (principal); F31.9 Bipolar disorder, unspecified; F39 Unspecified mood [affective] disorder; F17.210 Nicotine dependence, cigarettes, uncomplicated; F10.10 Alcohol abuse, uncomplicated; Z59.0 Homelessness
CPT/HCPCS: 80053; 80307; 85025; 99285